=== PATIENT | female | born 1935 | race African-American/Black ===

== ENCOUNTER → 2017-11-04 | Outpatient (CLI) | payer OTHER ==
[~2017-11-04] VITALS: Ht 154.9 cm; Wt 120.0 kg
[~2017-11-04] MED LIST: ATOR20TA15 PO; CHLORHEXIDINE GLUCONATE 2 % 1 PACK (2 CLOTHS) TOPICAL PRN; CO Q100C9 PO; COZA100T PO; DEXTROSE 5% IN WATE 1000ML INJ 1,000 ML IV SCH; DONE5TAB7 PO; ECASA81 PO; IOHEXOL 350 MG/ML 50 ML BTL (for Cath Lab) OTHER ONE; LACTATED RINGER'S 1000 ML IV PRN; LIDOCAINE HCL 1% PF 5 ML SYRINGE OTHER ONE; MEMA1TAB2 PO; METO25TA3 PO; METOPROLOL TARTRATE 25 MG TAB PO PRN; POVIDONE IODINE 5% (ANTISEPSIS KIT) 4 APPLICATIONS EACH NARE PRN; PROPOFOL 200 MG/20 ML AMP IV ONE; RANI150T PO; SODIUM CHLORID 0.9% 500 ML IV PRN; TRAZ50TA12 PO; VERA1TAB17 PO
--- NOTE | 2017-11-04 13:42 | MR ---
cc: Aftab Chavarria MD DATE: 11/04/2017 PREOPERATIVE DIAGNOSIS: Past history of sigmoid colon carcinoma. POSTOPERATIVE DIAGNOSIS: Past history of sigmoid colon carcinoma. PROCEDURE PERFORMED: Total colonoscopy. ANESTHESIA: Monitored anesthesia care. 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 She had a difficult time recuperating from the surgery, but has recuperated fully now at this time. She is having no symptoms, but is due for a followup colonoscopy. We offered her a colonoscopy as an outpatient at the hospital given her age and obesity. At colonoscopy, no polyps or other mucosal lesions were seen. The prep was basically good. She did have a large amount of clear fluid in the colon. It was aspirated and a fairly good look was obtained. No polyps or other mucosal lesions were seen. I was able to see the area of the anastomosis at the top of the rectum and it was totally normal and without evidence of recurrence. OPERATIVE TECHNIQUE: The patient was placed on the table in left lateral position, given intravenous monitored anesthesia care and a colonoscope was introduced through the anal canal, taken through the rectum, sigmoid colon, descending, transverse colon, ascending colon to the cecum. The ileocecal valve was seen as was the base of the appendix. Scope was sequentially withdrawn, sequentially looking at the mucosa, getting a good look at the mucosa. No polyps or other mucosal lesions were seen. The scope was eventually withdrawn. The patient tolerated the procedure well and left the GI Lab in good condition, and she should have a repeat colonoscopy in 3 years if her health permits it. I will see her in the office in followup. Atfab Chavarria MD JVARINDER/TIM , 01:31 PM , 01:41 PM
[2017-11-04 13:59] VITALS: BP 139/67; PULSE 53; RESP 16; TEMP 98.5; O2SAT 98
--- NOTE | 2017-11-04 20:00 | EKG ---
Date Performed: 11/04/2017 Time Performed: 11:14:29 PTAGE: 82 years EKG: SINUS BRADYCARDIA BORDERLINE LEFT AXIS DEVIATION MODERATE VOLTAGE CRITERIA FOR LVH, CONSIDE R NORMAL VARIANT BORDERLINE ECG Since the PREVIOUS TRACING , no significant change noted PREVIOUS TRACIN03/30/2016 12.38 DOCTOR: Racquel Steven Interpretating Date/Time 11/04/2017 16:46:22
== END ==
LOC: HSDC 10:45
PROVIDERS: ATTEND Colon & Rectal Surgery
DX: Z85.038 Personal history of other malignant neoplasm of large intestine (principal); I10 Essential (primary) hypertension; Z01.810 Encounter for preprocedural cardiovascular examination
CPT/HCPCS: 00811; 45378; 93005; J7120; C1769; C1893; Q9967